=== PATIENT | male | born 1930 | race Caucasian/White ===

== ENCOUNTER 2017-04-23 14:08 | Emergency (ER) | payer MEDICARE ==
[~2017-04-23] VITALS: Ht 180.3 cm; Wt 81.6 kg
[~2017-04-23 14:08] MED LIST: ASP325T PO; ASP81CT PO; ATOR40TA70 PO; CLPD75T PO; GLYB5TAB6 PO; LISI20TA PO; LSNP20T PO; MECL-124 PO; MECL25TA56 PO; SIMV40TA4 PO; SIMV80TA3 PO; SITA100T PO; TMSL.4C PO
[2017-04-23 14:45] LABS: BASOPHILS % (AUTO) 0 % (0-10); EOSINOPHILS # (AUTO) 0.1 10^3/uL (0.0-0.3); EOSINOPHILS % (AUTO) 1 % (0-10); LYMPHOCYTES # (AUTO) 2.1 X 10^3 (1.0-4.0); LYMPHOCYTES % (AUTO) 22 % (12-44); MEAN CORPUSCULAR HEMOGLOBIN 30 PG (25-34); MEAN CORPUSCULAR HGB CONC 34 G/DL (32-36); MEAN CORPUSCULAR VOLUME 91 FL (80-99); MEAN PLATELET VOLUME 11.3 FL (7.4-10.4); MONOCYTES # (AUTO) 0.8 X 10^3 (0.0-1.0); MONOCYTES % (AUTO) 9 % (0-12); NEUTROPHILS # (AUTO) 6.5 X 10^3 (1.8-7.8); NEUTROPHILS % (AUTO) 69 % (42-75); PLATELET COUNT 192 10^3/uL (130-400); RED BLOOD COUNT 4.11 10^6/uL (4.35-5.85); RED CELL DISTRIBUTION WIDTH 12.7 % (10.0-14.5); WHITE BLOOD COUNT 9.5 10^3/uL (4.3-11.0)
[2017-04-23 15:06] LABS: ALANINE AMINOTRANSFERASE 10 U/L (0-55); ALBUMIN 3.5 GM/DL (3.2-4.5); ANION GAP 11 MMOL/L (5-14); ASPARTATE AMINO TRANSFERASE 14 U/L (5-34); BILIRUBIN,TOTAL 0.6 MG/DL (0.1-1.0); BLOOD UREA NITROGEN 15 MG/DL (7-18); BUN/CREATININE RATIO 19; CALCIUM 8.8 MG/DL (8.5-10.1); CARBON DIOXIDE 22 MMOL/L (21-32); CHLORIDE 101 MMOL/L (98-107); CREATININE SERUM 0.79 MG/DL (0.60-1.30); GFR ESTIMATED > 60; GLUCOSE 194 MG/DL (70-105); POTASSIUM 4.6 MMOL/L (3.6-5.0); SODIUM 134 MMOL/L (135-145); TOTAL PROTEIN 5.8 GM/DL (6.4-8.2)
[2017-04-23 15:07] LABS: BILIRUBIN,URINE NEGATIVE (NEGATIVE); KETONES,URINE NEGATIVE (NEGATIVE); LEUKOCYTE ESTERASE ,URINE NEGATIVE (NEGATIVE); NITRITE,URINE NEGATIVE (NEGATIVE); PH,URINE 6 (5-9); PROTEIN,URINE 1+ (NEGATIVE); UROBILINOGEN,URINE 1 MG/DL (NORMAL)
--- NOTE | 2017-04-23 15:10 | Diagnostic Imaging Report ---
INDICATION: Weakness, confusion. TECHNIQUE: Single view chest, 2:44 p.m. CORRELATION STUDY: 10/19/2014. FINDINGS: Patient is poststernotomy and coronary artery bypass. Heart size, mediastinum and vasculature are normal limits. Lung parks overall are mildly hyperinflated but generally clear. Likely areas of fibrosis or scarring, particularly about the left mid lung field. IMPRESSION: Negative for acute cardiopulmonary abnormality. Poststernotomy changes. Dictated by: Dictated on workstation # [id number]
--- NOTE | 2017-04-23 16:02 | ED General ---
General Chief Complaint: Altered Mental Status Stated Complaint: WEAKNESS/CONFUSION Nursing Triage Note: c/o worsening confusion since yesterday. Pt reported difficulty with vision and coordination problems. 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 Nursing Sepsis Screen: No Definite Risk Source of Information: Patient, Family Exam Limitations: No Limitations History of Present Illness Time Seen by Provider: 15:55 Initial Comments The patient is an 86-year-old white male whose family is known to me. He was brought here by his and granddaughter. He has had at least 2 strokes in the past. 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 He saw Dr. Witt his PCP earlier in the week and performed well enough and had normal laboratory studies. They report that as compared to yesterday he seems more confused. He at times is stated he could not see. He has had trouble figuring out how to do things that he was able to perform yesterday. He has not been agitated or aggressive Timing/Duration: 12-24 Hours Associated Systoms: Weakness Allergies and Home Medications Allergies Coded Allergies: No Known Drug Allergies (Unverified , 09/04/13) Home Medications Aspirin 81 Mg Chew, 81 MG PO DAILY@0900, #100 Prescribed by: GIGI WITT on 10/24/14 0738 Atorvastatin Calcium 40 Mg Tablet, 40 MG PO HS, #30 Ref 12 Prescribed by: GIGI WITT on 10/24/14 0819 Clopidogrel Bisulfate 75 Mg Tab, 75 MG PO DAILY, #30 Ref 12 Prescribed by: GIGI WITT on 10/24/14 0738 Lisinopril 20 Mg Tablet, 20 MG PO DAILY, (Reported) Meclizine Hcl 25 Mg Tab.chew, 25 MG PO QID PRN for DIZZINESS, (Reported) Sitagliptin Phosphate 100 Mg Tablet, 100 MG PO DAILY, (Reported) Tamsulosin Hcl 0.4 Mg Cap, 0.4 MG PO HS, (Reported) Constitutional: see HPI EENTM: vision loss (by his statement) Respiratory: no symptoms reported Cardiovascular: no symptoms reported Gastrointestinal: no symptoms reported Genitourinary: no symptoms reported Musculoskeletal: muscle weakness Skin: no symptoms reported Psychiatric/Neurological: Other (more confused) Hematologic/Lymphatic: No Symptoms Reported Immunological/Allergic: no symptoms reported Past Rkacfbs-Vloxas-Tuufcs Hx Patient Social History Recent Foreign Travel: No Contact w/Someone Who Travel: No Recent Infectious Disease Expo: No Immunizations Up To Date Date of Pneumonia Vaccine: Jul 10, 2012 Date of Influenza Vaccine: Aug 10, 2014 Seasonal Allergies Seasonal Allergies: No Surgeries HX Surgeries: Yes Surgeries: Abdominal, CABG Respiratory Hx Respiratory Disorders: No Cardiovascular Hx Cardiac Disorders: Yes (OPEN HEART) Cardiac Disorders: Coronary Artery Disease, High Cholesterol, Hypertension Neurological Hx Neurological Disorders: Yes (STROKE IN THIS ADMISSION) Neurological Disorders: Stroke Reproductive System Hx Reproductive Disorders: No Sexually Transmitted Disease: No HIV/AIDS: No Genitourinary Hx Genitourinary Disorders: Yes Genitourinary Disorders: Benign Prostatic Hyperpl Gastrointestinal Hx Gastrointestinal Disorders: Yes Gastrointestinal Disorders: Gastroesophageal Reflux, Hiatal Hernia Musculoskeletal Hx Musculoskeletal Disorders: Yes Musculoskeletal Disorders: Gout Endocrine Hx Endocrine Disorders: Yes (NON-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 TIME) Endocrine Disorders: Diabetes, Non-Insulin dep HEENT HX ENT Disorders: No Cancer Hx Cancer: No Psychosocial Hx Psychiatric Problems: No Integumentary HX Skin/Integumentary Disorder: No Blood Transfusions Hx Blood Disorders: No Adverse Reaction to a Blood Tr: No Family Medical History Family Medial History: Congenital heart disease 03 FATHER, Onset:40's - 50 09 SISTER, Onset:40's - 50 Family history: Alzheimer's disease 03 MOTHER, Onset:60 years & older Family history: Diabetes mellitus 09 BROTHER, Onset:40's - 50 Myocardial infarction 09 SISTER, Onset:40's - 50 Physical Exam Vital Signs Vital Sign - Last 12Hours 04/23/17 14:22 Temp 97.5 Pulse 66 Resp 16 B/P (MAP) 149/84 Pulse Ox 95 O2 Delivery Room Air Capillary Refill : Less Than 3 Seconds General Appearance: No Apparent Distress, WD/WN Eyes: Bilateral Eye Normal Inspection HEENT: Normal ENT Inspection Neck: Normal Inspection Respiratory: Chest Non Tender, Lungs Clear, Normal Breath Sounds, No Accessory Muscle Use, No Respiratory Distress Cardiovascular: Regular Rate, Rhythm, No Edema, No Gallop, No JVD, No Murmur, Normal Peripheral Pulses Gastrointestinal: Normal Bowel Sounds, No Organomegaly, No Pulsatile Mass, Non Tender, Soft Back: Normal Inspection, No CVA Tenderness, No Vertebral Tenderness Extremity: Normal Capillary Refill, Normal Inspection, Normal Range of Motion, Non Tender, No Calf Tenderness, No Pedal Edema Neurologic/Psychiatric: Alert, Oriented x3, No Motor/Sensory Deficits, Normal Mood/Affect Skin: Normal Color, Warm/Dry Lymphatic: No Adenopathy Progress/Results/Core Measures Results/Orders Lab Results Laboratory Tests Test 04/23/17 14:35 04/23/17 15:00 Range/Units White Blood Count 9.5 4.3-11.0 10^3/uL Red Blood Count 4.11 L 4.35-5.85 10^6/uL Hemoglobin 12.5 L 13.3-17.7 G/DL Hematocrit 37 L 40-54 % Mean Corpuscular Volume 91 80-99 FL Mean Corpuscular Hemoglobin 30 25-34 PG Mean Corpuscular Hemoglobin Concent 34 32-36 G/DL Red Cell Distribution Width 12.7 10.0-14.5 % Platelet Count 192 130-400 10^3/uL Mean Platelet Volume 11.3 H 7.4-10.4 FL Neutrophils (%) (Auto) 69 42-75 % Lymphocytes (%) (Auto) 22 12-44 % Monocytes (%) (Auto) 9 0-12 % Eosinophils (%) (Auto) 1 0-10 % Basophils (%) (Auto) 0 0-10 % Neutrophils # (Auto) 6.5 1.8-7.8 X 10^3 Lymphocytes # (Auto) 2.1 1.0-4.0 X 10^3 Monocytes # (Auto) 0.8 0.0-1.0 X 10^3 Eosinophils # (Auto) 0.1 0.0-0.3 10^3/uL Basophils # (Auto) 0.0 0.0-0.1 10^3/uL Sodium Level 134 L 135-145 MMOL/L Potassium Level 4.6 3.6-5.0 MMOL/L Chloride Level 101 98-107 MMOL/L Carbon Dioxide Level 22 21-32 MMOL/L Anion Gap 11 5-14 MMOL/L Blood Urea Nitrogen 15 7-18 MG/DL Creatinine 0.79 0.60-1.30 MG/DL Estimat Glomerular Filtration Rate > 60 BUN/Creatinine Ratio 19 Glucose Level 194 H 70-105 MG/DL Calcium Level 8.8 8.5-10.1 MG/DL Total Bilirubin 0.6 0.1-1.0 MG/DL Aspartate Amino Transf (AST/SGOT) 14 5-34 U/L Alanine Aminotransferase (ALT/SGPT) 10 0-55 U/L Alkaline Phosphatase 76 40-136 U/L Total Protein 5.8 L 6.4-8.2 GM/DL Albumin 3.5 3.2-4.5 GM/DL Urine Color YELLOW Urine Clarity CLEAR Urine pH 6 5-9 Urine Specific [place] 1.020 1.016-1.022 Urine Protein 1+ H NEGATIVE Urine Glucose (UA) 3+ H NEGATIVE Urine Ketones NEGATIVE NEGATIVE Urine Nitrite NEGATIVE NEGATIVE Urine Bilirubin NEGATIVE NEGATIVE Urine Urobilinogen 1 NORMAL MG/DL Urine Leukocyte Esterase NEGATIVE NEGATIVE Urine RBC (Auto) 2+ H NEGATIVE Urine RBC 0-2 /HPF Urine WBC NONE /HPF Urine Squamous Epithelial Cells NONE /HPF Urine Crystals NONE /LPF Urine Bacteria NEGATIVE /HPF Urine Casts NONE /LPF Urine Mucus NEGATIVE /LPF Urine Culture Indicated NO Vital Signs/I&O Vital Sign - Last 12Hours 04/23/17 14:22 Temp 97.5 Pulse 66 Resp 16 B/P (MAP) 149/84 Pulse Ox 95 O2 Delivery Room Air Blood Pressure Mean: 105 Departure Communication Progress Notes Laboratory including UA gave no clear culprit as to his change in mentation. He was pleasant with me. He was able to follow directions relative to cranial nerve evaluation. He was able to perform alternating finger to thumb movements bilaterally. He was able to perform finger to examiner's finger and finger to nose alternating movements. He was asked to sit on the side of the bed which he did without additional prompting. He was able to walk to the door of the room without assistance. This was done in tandem movement. On return to the bed he one footed it with the right foot in the lead, however there was no unsteadiness. 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 Referrals: GIGI WITT MD (PCP/Family) Primary Care Physician MARKOS BEAVER MD Apr 23, 2017 16:02
[2017-04-23 16:12] VITALS: BP 142/80
== END 2017-04-23 16:12 | disposition home or self-care (01) ==
LOC: EDUNIT# 14:08 → ER 14:10
DX: F05 Delirium due to known physiological condition (principal); I25.10 Atherosclerotic heart disease of native coronary artery without angina pectoris; E78.00 Pure hypercholesterolemia, unspecified; I10 Essential (primary) hypertension; N40.0 Benign prostatic hyperplasia without lower urinary tract symptoms; K21.9 Gastro-esophageal reflux disease without esophagitis; M06.9 Rheumatoid arthritis, unspecified; E11.9 Type 2 diabetes mellitus without complications; Z79.82 Long term (current) use of aspirin; Z95.1 Presence of aortocoronary bypass graft; Z98.890 Other specified postprocedural states; Z86.73 Personal history of transient ischemic attack (TIA), and cerebral infarction without residual deficits
CPT/HCPCS: 36415; 71010; 80053; 81000; 85025